=== PATIENT | male | born 1960 | race Caucasian/White ===

== ENCOUNTER 2017-12-25 00:23 | Emergency (ER) | payer BC ==
[2017-12-25 00:56] LABS: #Basophils 0.1 thou/uL (0.0-0.2); #Eosinphils 0.4 thou/uL (0.0-0.7); #Lymphocytes 2.7 thou/uL (1.20-3.40); #Monocytes 0.7 thou/uL (0.11-0.59); #Neutrophils 4.6 thou/uL (1.40-6.50); %Basophils 1.4 % (0.0-1.0); %Eosinophils 4.9 % (0.0-10.0); %Lymphocytes 31.8 % (21.0-51.0); %Monocytes 8.3 % (0.0-10.0); %Neutrophils 53.6 % (42.0-75.0); Hemoglobin 14.1 g/dL (14.0-18.0); Mean Corpuscular HGB CONC 33.9 g/dL (32.0-36.0); Mean Corpuscular Hemoglobin 32.9 pg (27.0-31.0); Mean Platelet Volume 9.1 fL (7.4-10.4); Platelet Count 220 thou/uL (130-400); RBC Distribution Width 12.6 % (11.5-14.5); Red Blood Cell (RBC) Count 4.29 mill/uL (4.70-6.10); White Blood Cell (WBC) Count 8.5 thou/uL (4.8-10.8)
[2017-12-25 01:20] LABS: CKMB 1.8 ng/mL (0-6.6); Troponin I Less than 0.010 ng/mL (< 0.028)
[2017-12-25 01:21] LABS: ALT (SGPT) 20 U/L (8-55); AST (SGOT) 27 U/L (5-34); Albumin 4.7 g/dL (3.5-5.0); Alkaline Phosphatase 80 U/L (40-150); Anion Gap 19 mmol/L (10-20); BUN (Urea Nitrogen) 10 mg/dL (8.4-25.7); Bilirubin, Total 0.4 mg/dL (0.2-1.2); Calc. Creatinine Clearance 0 mL/min (70-130); Calcium 9.9 mg/dL (7.8-10.44); Carbon Dioxide 23 mmol/L (22-29); Chloride 105 mmol/L (98-107); Estimated GFR-MDRD Greater than 90; Globulin 3.1 g/dL (2.4-3.5); Glucose 101 mg/dL (70-105); Potassium 3.7 mmol/L (3.5-5.1); Protein, Total 7.8 g/dL (6.0-8.3); Sodium 143 mmol/L (136-145)
--- NOTE | 2017-12-25 07:48 | RAD ---
UPRIGHT PORTABLE CHEST: Date: 12/25/17 HISTORY: 57-year-old male with history of chest pain for 2 days, with shortness of breath. FINDINGS: Monitor leads overlie the chest. Minimal increased markings in the perihilar region. No confluent pne umonia, overt edema, or pleural effusion. IMPRESSION: No acute intrathoracic disease. No evidence for pneumonia. POS: OFF
== END 2017-12-25 01:47 | disposition home or self-care (01) ==
LOC: ERS 00:23
DX: R07.89 Other chest pain (principal); R05 Cough; E78.5 Hyperlipidemia, unspecified; I10 Essential (primary) hypertension
CPT/HCPCS: 71045; 80053; 82553; 84484; 85025; 93005

== ENCOUNTER 2017-12-26 18:59 | Emergency (ER) | payer BC ==
[2017-12-26] MEDS ORDERED: Lidocaine 1% w/Epinephrine 1:100K 20 ML VIAL ONE (19:10)
--- NOTE | 2017-12-26 20:15 | RAD ---
THREE VIEWS LEFT HAND: 12/26/17 HISTORY: Laceration to index finger from machete. FINDINGS: There is soft tissue irregularity involving the left index finger laterally and volarly related to re cent laceration. There is overlying dressing material. The underlying osseous structures appear intac t. No fracture is identified. There is a tiny linear metallic foreign body seen in the subcutaneous s oft tissues just medial to the metacarpophalangeal joint small finger. There is also a few punctate m etallic foreign bodies seen in the volar and lateral subcutaneous soft tissues of the middle finger. There is no fracture or dislocation seen. Scattered minimal osteoarthritis is noted. IMPRESSION: 1. Subcutaneous soft tissue swelling with laceration involving the left index finger. No fractur e or dislocation is seen. 2. Tiny metallic foreign bodies in the subcutaneous tissues adjacent to the metacarpophalangeal joint small finger as well as adjacent to the middle phalanx of the middle finger. 3. Lytic lesions within the distal pole of the scaphoid bone which may be related to a prominent geode. Subchondral cystic changes are a possibility, but there does not appear to be significant ost eoarthritis at this level. Followup imaging is advised. POS: RAMIRO
[2017-12-26] MEDS ORDERED: Bacitracin Zinc 1 Packet ONE (20:50)
== END 2017-12-26 20:59 | disposition home or self-care (01) ==
LOC: ERS 18:59
DX: S61.211A Laceration without foreign body of left index finger without damage to nail, initial encounter (principal); I10 Essential (primary) hypertension; E78.5 Hyperlipidemia, unspecified; W26.0XXA Contact with knife, initial encounter
CPT/HCPCS: 12002; J2001